=== PATIENT | male | born 1965 | race Caucasian/White ===

== ENCOUNTER 2019-01-11 12:29 | Day surgery (SDC) | payer MEDICAID, MEDICARE ==
--- NOTE | 2019-01-11 07:26 | History and Physical - [facility] ---
CHIEF COMPLAINT/HISTORY OF CHIEF COMPLAINT: This patient presents with a history of an intractable thoracic and lumbar radiculopathy. Due to the failure of all therapies including a spinal cord stimulator trial, he presents today for an implanted catheter infusion trial using Hydromorphone to determine if the implantation of a permanent system can be of any value in pain control. PAST MEDICAL HISTORY: Noncontributory. PAST SURGICAL HISTORY: Ankle surgery, elbow surgery, and knee surgery. MEDICATIONS ON ADMISSION: List to be provided. ALLERGIES: METHADONE. FAMILY/PSYCHOSOCIAL HISTORY: Social history - Noncontributory. Family history - Hypertension. SYSTEMS REVIEW: The patient is appropriate in no acute distress. The remainder of the systems review is positive for headache, dentures, renal disease, and degenerative arthritis. PHYSICAL EXAMINATION: Height and weight are not known. Vital signs are not known. HEENT: Within normal limits. LUNGS: Clear. HEART: Rapid and regular rate. ABDOMEN: Nontender. MUSCULOSKELETAL: Examination of the musculoskeletal system shows diffuse tenderness throughout the thoracic and lumbar spine. Range of motion produces pain moving into both legs somewhat more left than right. Ambulation - No assistive device utilized. There currently are no motor or sensory abnormalities in his lower extremities. NEUROLOGIC: Cranial nerves are intact. IMPRESSION: THORACIC AND LUMBAR RADICULOPATHY, ICD-10 CODE M54.14 AND M54.16. PLAN: The patient is here for an implanted spinal catheter infusion trial of Hydromorphone to determine if the implantation of a permanent system can be of any value in pain control. Because the epidural blood patchy requires the patient to stay flat for four hours as a prophylactic measure against a headache , an overnight stay will be evaluated. The potential risks, side effects and complications have been reviewed and discussed. He understands and agrees. JOB NUMBER: [id number] [facility]
[~2019-01-11 12:29] MED LIST: ACETAMINOPHEN 1,000 MG/100 ML BTL IV ONE; CEFAZOLIN 2 Gram 2 GM/50 ML BAG IVPB ONE; FAMOTIDINE 20MG TABLET PO ONE; HYDROMORPHONE PF 2MG/ML AMP 0.008 MG in 0.9 % SODIUM CHLORIDE 10ML VIA 0.996 ML IV ONE; HYDROMORPHONE PF 2MG/ML AMP 8 MG in 0.9 % SODIUM CHLORIDE 500ML 496 ML IV ONE; MECLIZINE 25 MG TABLET PO ONE; METOCLOPRAMIDE 10 MG TABLET PO ONE
[2019-01-11] MEDS ORDERED: KETAMINE HCL 100MG/1ML VIAL INJ ONE (12:30)
[2019-01-11] MEDS ORDERED: BUPIVACAINE 0.5% W/EPI MPF 30 ML VIAL IVP ONE (12:30)
[2019-01-11] MEDS ORDERED: LIDOCAINE 2% MDV (20MG/ML) 20ML VIAL IV ONE (12:30)
[2019-01-11] MEDS ORDERED: 0.9 % SODIUM CHLORIDE 10 ML VIAL IVP ONE (12:30)
[2019-01-11] MEDS ORDERED: LIDOCAINE 1% W/EPI 1:200,000 MPF 30ML SQ ONE (12:30)
[2019-01-11] MEDS ORDERED: PROPOFOL 10 MG/ML VIAL IV ONE (12:30)
[2019-01-11] MEDS ORDERED: FENTANYL PF 100MCG/2ML VIAL IV ONE (12:30)
[2019-01-11] MEDS ORDERED: MIDAZOLAM HCL 2MG/2ML VIAL IV ONE (12:30)
[2019-01-11] MEDS ORDERED: ONDANSETRON HCL IV 4 MG/2 ML VIAL IVP ONE (12:30)
[2019-01-11] MEDS ORDERED: CEFAZOLIN 1G VIAL IM ONE (12:30)
[2019-01-11] MEDS ORDERED: TEMAZEPAM 15 MG CAPSULE PO PRN ×2 (14:39)
[2019-01-11] MEDS ORDERED: NALOXONE 0.4 MG/1 ML VIAL IVP PRN (14:39)
[2019-01-11] MEDS ORDERED: SENNOSIDES/DOCUSATE SODIUM UD CAPSULE PO PRN ×2 (14:39)
[2019-01-11] MEDS ORDERED: DIPHENHYDRAMINE HCL 50 MG/ML VIAL IVP PRN ×2 (14:39)
[2019-01-11] MEDS ORDERED: DIPHENHYDRAMINE HCL 25 MG CAPSULE PO PRN ×2 (14:39)
[2019-01-11] MEDS ORDERED: HYDROCODONE/APAP 7.5/325MG TABLET PO PRN (14:39)
[2019-01-11] MEDS ORDERED: RINGERS SOLUTION,LACTATED 1,000 ML IV SCH (14:39)
[2019-01-11] MEDS ORDERED: AL HYDROX/MAG HYDROX 30ML UD PO PRN (14:39)
[2019-01-11] MEDS ORDERED: OXYCODONE/APAP 10MG-325MG TABLET PO PRN ×2 (14:39)
[2019-01-11] MEDS ORDERED: METOCLOPRAMIDE HCL 10 MG/2 ML VIAL IVP PRN (14:39)
[2019-01-11] MEDS ORDERED: ACETAMINOPHEN 325 MG TAB PO PRN ×2 (14:39)
[2019-01-11] MEDS ORDERED: HYDROMORPHONE HCL 2 MG/ML VIAL IM PRN ×2 (14:39)
[2019-01-11] MEDS ORDERED: METOCLOPRAMIDE 10 MG TABLET PO PRN (14:39)
[2019-01-11] MEDS: HYDROCODONE/APAP 7.5/325MG TABLET PO PRN ×2 (15:18→16:22)
[2019-01-11] MEDS ORDERED: CEFAZOLIN 2 Gram 2 GM/50 ML BAG IVPB SCH (21:20)
--- NOTE | 2019-01-12 18:14 | Operative Note ---
DATE OF SURGERY: 01/11/19 PREOPERATIVE DIAGNOSES: INTRACTABLE LUMBAR RADICULOPATHY, ICD-10 CODE = M54.16 AND M54.17 WITH A THORACIC RADICULOPATHY, ICD-10 CODE = M54.14. POSTOPERATIVE DIAGNOSES: INTRACTABLE LUMBAR RADICULOPATHY, ICD-10 CODE = M54.16 AND M54.17 WITH A THORACIC RADICULOPATHY, ICD-10 CODE = M54.14. OPERATION: 1. FLUOROSCOPICALLY-GUIDED SPINAL ACCESS SPINAL SPACE AT L/4, PLACEMENT OF THIN- WALLED SPINAL CATHETER T8. 2. DIAGNOSTIC MYELOGRAPHY WITH RADIOLOGIC SUPERVISION AND INTERPRETATION. 3. SPINAL OPIOID BOLUS HYDROMORPHONE SPINAL SPACE 0.006 MG. 4. INCISION, SUBCUTANEOUS DISSECTION, AND ANCHORING OF SPINAL CATHETER TO SUPRASPINOUS FASCIA WITH ANCHORING DEVICE AND NONABSORBABLE SUTURE. 5. INCISION, SUBCUTANEOUS DISSECTION, AND CREATION OF SUBCUTANEOUS POUCH, RIGHT FLANK FOR PLACEMENT OF PUMP. 6. TUNNELING BETWEEN MIDLINE POUCH TO FLANK POUCH WITH SPINAL CATHETER INTO FLANK POUCH. SPINAL CATHETER THEN REVISED AND RESECTED WITH SECOND CATHETER AND CONNECTOR. 7. TUNNELING SECOND CATHETER COMPONENT 6 CM SUPERIOR EXITING SKIN. 8. INTERFACE EXTERNAL CATHETER TO EXTERNAL PUMP SET TO DELIVER HYDROMORPHONE AT 0.12 MG A DAY. 9. EPIDURAL BLOOD PATCH AT L4/5, 20 ML AUTOLOGOUS BLOOD STERILE TECHNIQUE, LEFT ANTECUBITAL. SURGEON: ROXANA PANDA D.O. ANESTHESIA: LOCAL SEDATION. ANESTHESIA PROVIDER: MANUEL SABILLON CRNA. INDICATION: This patient presents with a history of intractable lumbar radiculopathy and a thoracic radiculopathy secondary to chronic compression fracture multiple levels. Due to the failure of all options including spinal cord stimulation, the patient is here for implanted catheter and trial of Hydromorphone to determine if a spinal infusion would be of any value in his pain control. PROCEDURE: Intravenous line, vital sign monitoring, IV sedation, prepped and draped in sterile technique. With the patient position prone, sterile prep, sterile technique, local infiltration, and under imaging, the spinal interspace at L3/4 was marked. Skin infiltrated. A 20-gauge spinal needle beveled long axis in a paramedian approach using AP and lateral imaging was entered into the spinal space on lateral view. With CSF flow, a thin-walled spinal catheter was advanced positioned T8. Diagnostic myelography was performed, flow characteristics were appropriate, smooth, confirming catheter position and appropriate flow characteristics. There was still CSF noted through the catheter. With the confirmation of catheter position by way of myelography, a bolus of spinal opioid 0.006 mg was given into the spinal space. Catheter was clamped to stop CSF leak. The skin above and below the needle infiltrated, incision made, and subcutaneous dissection was conducted to the supraspinous fascia. The needle was removed and the catheter was anchored to the supraspinous fascia with an anchoring device and nonabsorbable suture. At the right flank, a site ultimately for the pump, skin infiltrated, incision made, and subcutaneous dissection was conducted to form a pouch of suitable size and depth for the connector. A tunneling tool was used to carry the spinal catheter into the flank pouch and then the spinal catheter was interfaced with a second catheter component by way of a connector. The second catheter component was then tunneled 6 cm superior exiting the skin. The second catheter component was then interfaced with an external pump, which was programmed to deliver Hydromorphone at 0.12 mg a day. The midline incision was closed with Vicryl for fascia and a 3-0 Vicryl for skin. The flank pouch was closed with a running nylon. At L4-5, which was one level below the dural puncture, skin infiltrated, and an 18-gauge Tuohy needle with [id number] into the space. Simultaneously, 20 mL of autologous blood drawn sterile technique from the left antecubital. This blood maintained sterility, placed onto the field, and an epidural blood patch was performed at this level with this blood. Sterile dressing was applied securing the external catheter and all components under the sterile dressing. He was then transported to the Recovery Room. The external pump infusing at 0.12 mg a day. He will be kept flat, pillow under head and knees for four hours and slowly elevated for one, and if stable and requesting, he could be discharged to home. DISCHARGE INSTRUCTIONS: 1. Sites remain clean and dry. No showering or bathing in any way that would disrupt dressings. If it happens, he should contact the clinic. 2. Standard medications resumed including the antibiotic Levaquin. He will take 500 mg once a day for 14 days. 3. The trial is set for 14 days. During this period of time, we will schedule three possible increases. At the end of the trial period, we will either remove the implanted catheter or implant the pump interfacing to the implanted catheter. Spinal opioid side-effects; respiratory depression, nausea, vomiting, constipation, urinary retention, lightheadedness or rash have all been discussed and reviewed. Should it happen, he should contact the clinic. All other instructions provided, numbers to contact, problems given, he will be discharged. cc: Dr. Abril Carrero JOB NUMBER: [id number] MTDD
--- NOTE | 2019-01-14 14:41 | RADIOLOGY REPORT ---
DATE: 01/11/2019 at 1414 hours. EXAM: SPINE, ONE VIEW. HISTORY: Status post pump trial. TECHNIQUE: Single AP portable supine view of the spine is obtained including the lumbar and lower thoracic levels. FINDINGS: A single intraspinal catheter is in place. This likely enters the spinal canal near the L3-L4 level. The tip of the catheter projects at the upper T9 level. There are degenerative endplate changes scattered throughout the visualized spine. No fracture is seen. No lytic or blastic bone lesion. IMPRESSION: SINGLE INTRASPINAL CATHETER IN PLACE WITH ITS TIP PROJECTING AT THE UPPER T9 LEVEL. JOB NUMBER: [id number] MTDD
== END 2019-01-11 19:45 | disposition home or self-care (01) ==
LOC: SUR 12:29 → MEDSURG 14:51 → SUR 19:45
PROVIDERS: ATTEND Pain Medicine Interventional Pain Medicine
DX: M54.16 Radiculopathy, lumbar region (principal); M54.17 Radiculopathy, lumbosacral region; M54.14 Radiculopathy, thoracic region
CPT/HCPCS: 63650; 63685; 01936; 36416; 82948; 72020; Q9967; J2405; J3010; J1170 ×2; J0690; J3490; J7040

== ENCOUNTER 2019-01-25 11:40 | Day surgery (SDC) | payer MEDICARE ==
--- NOTE | 2019-01-25 06:51 | History and Physical - [facility] ---
CHIEF COMPLAINT/HISTORY OF CHIEF COMPLAINT: This patient with a history of a thoracic radiculopathy has an implanted spinal catheter infusion trial with Hydromorphone achieving up to 75% pain control. In his own words, this is the best pain relief he has had in more years than he can count. We are considering the trial successful. He is here for full implantation. PAST MEDICAL HISTORY: Unchanged. PAST SURGICAL HISTORY: Unchanged. MEDICATIONS ON ADMISSION: List to be provided. ALLERGIES: METHADONE. FAMILY/PSYCHOSOCIAL HISTORY: Social history - Unchanged. Family history - Unchanged. SYSTEMS REVIEW: The patient is appropriate in no acute distress. PHYSICAL EXAMINATION: Height and weight are not known. Vital signs are not available. HEENT: Within normal limits. LUNGS: Clear. HEART: Rapid and regular. ABDOMEN: Nontender. MUSCULOSKELETAL: Examination of the musculoskeletal system shows the dressings for the internal catheter infusion trial with Hydromorphone still in place. The external pump and external catheter are in place. The pump is infusing appropriately. NEUROLOGIC: Cranial nerves are intact. IMPRESSION: 1. THORACIC AND LUMBAR RADICULOPATHY, ICD-10 CODE M54.14 AND M54.16. 2. IMPLANTED SPINAL CATHETER INFUSION TRIAL USING HYDROMORPHONE. PLAN: We have 75+% pain control with the trial. He is here for full permanent implantation. We are removing the external components and implanting the pump. The procedure will be considered possibly outpatient. JOB NUMBER: [id number] MTDD
[~2019-01-25 11:40] MED LIST changes: +HYDROMORPHONE HCL 0.04 GM in 0.9 % SODIUM CHLORIDE 10ML VIA 20 ML IV ONE; -HYDROMORPHONE PF 2MG/ML AMP 8 MG in 0.9 % SODIUM CHLORIDE 500ML 496 ML IV ONE
[2019-01-25] MEDS ORDERED: KETAMINE HCL 100MG/1ML VIAL INJ ONE (11:41)
[2019-01-25] MEDS ORDERED: LIDOCAINE 1% W/EPI 1:200,000 MPF 30ML SQ ONE (11:41)
[2019-01-25] MEDS ORDERED: FENTANYL PF 100MCG/2ML VIAL IV ONE (11:41)
[2019-01-25] MEDS ORDERED: PROPOFOL 10 MG/ML VIAL IV ONE (11:41)
[2019-01-25] MEDS ORDERED: 0.9 % SODIUM CHLORIDE 10 ML VIAL IVP ONE (11:41)
[2019-01-25] MEDS ORDERED: CEFAZOLIN 1G VIAL IM ONE (11:41)
[2019-01-25] MEDS ORDERED: BUPIVACAINE 0.5% W/EPI MPF 30 ML VIAL IVP ONE (11:41)
[2019-01-25] MEDS ORDERED: MIDAZOLAM HCL 2MG/2ML VIAL IV ONE (11:41)
[2019-01-25] MEDS ORDERED: LABETALOL HCL 5MG/ML, 20ML VIAL IV ONE (11:41)
[2019-01-25] MEDS ORDERED: LIDOCAINE 2% MDV (20MG/ML) 20ML VIAL IV ONE (11:41)
--- NOTE | 2019-01-30 06:50 | Operative Note ---
DATE: 01/25/2019. PREOPERATIVE DIAGNOSES: 1. INTRACTABLE THORACIC LUMBAR RADICULOPATHY, ICD-10 CODE M54.14 AND M54.16. 2. IMPLANTED SPINAL CATHETER INFUSION TRIAL WITH HYDROMORPHONE AT 0.7 MG A DAY. OPERATIVE DIAGNOSES: 1. INTRACTABLE THORACIC LUMBAR RADICULOPATHY, ICD-10 CODE M54.14 AND M54.16. 2. IMPLANTED SPINAL CATHETER INFUSION TRIAL WITH HYDROMORPHONE AT 0.7 MG A DAY. ANESTHESIA: Local sedation. ANESTHESIA PROVIDER: Gavino Garcia CRNA. PROCEDURES: 1. Fluoroscopically guided incision, subcutaneous dissection, and creation of subcutaneous pouch at right flank; the site picked by the patient for the pump. 2. Removal of external catheter by cutting indwelling catheter connection to external catheter connector. 3. Revision of internal spinal catheter with second catheter component by way of connector. 4. Placement of 20 mL programmable Medtronic pump prefilled with hydromorphone 2.0 mg per mL onto the field, interfaced with revised catheter. 5. Placement of pump and revised catheter into pouch at the right flank securing to posterior fascia at three points with pump eyelets with nonabsorbable suture. 6. With pump in pouch, placement of curved 24-gauge Andrade needle into access port aspirating and clearing spinal catheter of 1.0 mL of catheter contents. 7. Diagnostic myelography through access port with radiologic supervision and interpretation confirming functionality of system. 8. Closure of incision using Stratafix suture; #2-0 for the fascia and #3-0 for the skin. Dermabond closure. 9. Programming of pump to deliver by continuous infusion hydromorphone at 0.95 mg a day, increased from 0.7 per day. SURGEON: Shon Moe D.O. ANESTHESIA: Local sedation. ANESTHESIA PROVIDER: Rhonda Rudolph CRNA. INDICATIONS: This patient presents with a history of intractable thoracic and lumbar radiculopathy. Due to the failure of all therapies, a spinal infusion trial with hydromorphone was conducted with 75 to 85 percent pain control. Final dose 0.7 mg a day. Due to the failure of all other therapies, the success of the trial, and by the patient's request he is here for permanent implantation. DESCRIPTION OF PROCEDURE: Intravenous lines, vital sign monitoring, and intravenous sedation by Anesthesia with the patient positioned prone. Sterile prep. All of the dressings were removed. The external catheter was clamped, and the external pump component was cut and removed from the field. Sterile prep, sterile technique. At the right flank, a site which had been picked by the patient for the pump, the skin was infiltrated, an incision was made, and subcutaneous dissection was conducted to form a pouch of suitable size and depth for the pump, a 20 mL programmable pump. Once the appropriate pouch was made, the catheter connection permanent to external was cut at the connector. The external catheter was removed by pulling away from the incision. The remaining indwelling permanent catheter was then resected and revised with a second catheter component by way of a connector. A new 20 mL programmable Medtronic pump was placed onto the field prefilled with hydromorphone at 2.0 mg per mL. The revised catheter was then interfaced with the pump. Antibiotic irrigation and Bovie for hemostasis. The pump was placed into the pouch at the right flank and secured to the posterior fascia with nonabsorbable suture at three points with pump eyelets. With the pump in the pouch, a curved 24-gauge Andrade needle was inserted into the access port, and 1.0 mL of catheter contents was aspirated, clearing the catheter of opioid and cerebrospinal fluid mixture. Contrast was then injected through the access port. The resulting myelogram with radiologic supervision and interpretation showed contrast moving through the pump and catheter connection and at the tip of the spinal space approximating T8. Functionality of the system was confirmed. Normal, appropriate flow characteristics were identified in the spinal space. With the pump in the pouch the incision was closed using Stratafix suture with # 2-0 for the fascia and #3-0 for the skin. Dermabond closure approximated the edges of the wound. He was transported to the recovery room. The pump was then programmed to deliver by continuous infusion hydromorphone at 0.95 mg per day. This was an increase from the end of the trial at 0.7 mg a day. He was stable on arrival to the recovery room with no side effects from the procedure or sedation. He was watched until stable and was then prepared for discharge. DISCHARGE INSTRUCTIONS: 1. The sites are to remain clean and dry. No showering or bathing in any way that would disrupt dressings. If this happens, contact the clinic. Although he may shower with the Dermabond, he may not sit in water. 2. Standard medications to be resumed including the antibiotic Keflex which he will use 500 mg twice a day for 7 to 10 days. 3. He will be evaluated in the office in 7 to 10 days to determine if he should be continuing the antibiotic. 4. The potential side effects from spinal opioids including respiratory depression, nausea, vomiting, constipation, urinary retention, light headedness , and rash have been discussed and reviewed with the patient and his . 5. He is requesting to be discharged home. 6. The office is to contact the patient in 12 to 24 hours to set up a time in the next 7 to 10 days to evaluate the sites. Until then his activities should stay low. 7. Other numbers to contact with problems were given. JOB NUMBER: [id number] cc: Abril Carrero M.D. MTDD
== END 2019-01-25 14:50 | disposition home or self-care (01) ==
LOC: SUR 11:40
PROVIDERS: ATTEND Pain Medicine Interventional Pain Medicine
DX: M54.14 Radiculopathy, thoracic region (principal); M54.16 Radiculopathy, lumbar region; I10 Essential (primary) hypertension
CPT/HCPCS: 62350; 62362; 01936; 62367; 36416; 82948; Q9967; J3010; J0690; J1170; J3490; C1755; C1776